=== PATIENT | female | born 1950 | race Caucasian/White ===

== ENCOUNTER → 2018-08-22 10:08 | Outpatient (CLI) | payer OTHER, SELFPAY ==
--- NOTE | 2018-08-22 | DI.MG.S_ITS ---
BILATERAL DIGITAL SCREENING MAMMOGRAM 3D/2D WITH CAD: 08/22/2018 CLINICAL: Routine screening. Comparison is made to exams dated: 09/26/2016 mammogram, 08/20/2015 mammogram, 05/29/2014 mammogram, and 05/06/2013 mammogram - [facility]. The tissue of both breasts is heterogeneously dense. This may lower the sensitivity of mammography. Current study was also evaluated with a Computer Aided Detection (CAD) system. No significant masses, calcifications, or other findings are seen in either breast. There has been no significant interval change. IMPRESSION: NEGATIVE There is no mammographic evidence of malignancy. A 1 year screening mammogram is recommended. This exam was interpreted at Station ID: [id number]. NOTE: For mammograms, a report in lay terms will be sent to the patient. Approximately 15% of breast malignancies will not be visualized mammographically. In the management of a palpable breast mass, a negative mammogram must not discourage biopsy of a clinically suspicious lesion. Electronically Signed By: Pb lim/tyrone:08/23/2018 11:44:03 letter sent: Normal Exam ACR BI-RADS Category 1: Negative [id number]
== END ==
PROVIDERS: PCP Nurse Practitioner Family; Visit Provider Nurse Practitioner Family
DX: Z12.31 Encounter for screening mammogram for malignant neoplasm of breast (principal)
CPT/HCPCS: 77063; 77067

== ENCOUNTER → 2019-02-25 14:14 | Outpatient (CLI) | payer OTHER, SELFPAY | PROVIDERS: PCP Nurse Practitioner Family; Visit Provider Nurse Practitioner Family | DX: M85.851 Other specified disorders of bone density and structure, right thigh (principal); Z78.0 Asymptomatic menopausal state; E07.9 Disorder of thyroid, unspecified; Z90.722 Acquired absence of ovaries, bilateral; Z82.62 Family history of osteoporosis | CPT/HCPCS: 77080 ==

== ENCOUNTER → 2020-04-23 08:35 | Outpatient (CLI) | payer MEDICARE, OTHER, SELFPAY ==
--- NOTE | 2020-04-23 08:37 | DI.MRI.S_ITS ---
PROCEDURE: MR LUMBAR SPINE WO CON INDICATIONS: L4/5 slip TECHNIQUE: Noncontrast sagittal T1 spin echo and T2 fast echo, sagittal STIR, axial T1 and T2 fast spin echo through the lumbar spine. In cases with scoliosis, additional coronal T2 fast spin echo may be performed. COMPARISON: [facility], CR, XR LUMBAR SPINE MIN 4V, 04/23/2020, 9:10. [facility], CT, CT ABD PELVIS W&WO CON IVP, 01/19/2016, 11:27. FINDINGS: Image quality: Diagnostic, with note made of motion artifact. Alignment and Curvature: There is mild grade 1 L3-L4 anterolisthesis, without associated pars defects seen. Minimal retrolisthesis is seen at L4-L5. Bone Marrow: Marrow is of normal overall signal. No acute vertebral body compression fractures. Spinal Cord: Conus medullaris terminates at the L1 level. Visualized cord demonstrates normal signal and size. Paraspinous Soft Tissues: No paravertebral masses. T12-L1: Normal appearance. L1-L2: Normal appearance. L2-L3: The disc height is well-preserved. Loss of disc signal is seen at this level. Moderate to prominent disc bulge is seen, with a central disc extrusion, as on series 5, image 15 and on series 4, image 8. Moderate facet joint hypertrophy is seen. Associated hypertrophy of the ligamentum flavum can be seen. There is [id number] left-sided and minimal right-sided neural foraminal narrowing seen. Severe central canal narrowing is seen at this level. L3-L4: The disc height is well-preserved. Loss of disc signal is seen at this level. Moderate to prominent disc bulge is seen, with a central disc extrusion, with superior migration of the disc material, as on series 2, image 7 and on series 5, image 19. At least moderate facet hypertrophy is seen at this level. Moderate bilateral neural foraminal narrowing is seen. Severe central canal narrowing is seen at this level, which is best seen on series 5, image 20. L4-L5: The disc height is well-preserved. Loss of disc signal is seen at this level. Moderate disc bulge is seen, with a central disc protrusion. Moderate facet joint hypertrophy is seen. There is moderate to severe bilateral neural foraminal narrowing seen. There is a degree of compression seen upon the exiting nerve roots. At least moderate central canal narrowing is seen, as on series 5, image 25. L5-S1: The disc height is well-preserved. Loss of disc signal is seen at this level. Moderate disc bulge is seen, with a central disc protrusion. Mild to moderate facet hypertrophy can be seen at this level. Moderate to severe bilateral neural foraminal narrowing can be seen. There is a degree of compression seen upon the exiting nerve roots. Moderate central canal narrowing is seen. IMPRESSION: Multiple levels of prominent lumbar spine degenerative change are seen, including central disc extrusions at L2-L3 and L3-L4. Severe central canal narrowing is seen at L2-L3 and L3-L4. Moderate to severe bilateral neural foraminal narrowing can be seen, with associated exiting nerve root compression at L4-L5 and L5-S1. Dictated by: Isai Healy M.D. on 04/23/2020 at 9:37 Approved by: Isai Healy M.D. on 04/23/2020 at 9:43
--- NOTE | 2020-04-23 08:37 | DI.RAD.S_ITS ---
PROCEDURE: XR LUMBAR SPINE MIN 4V INDICATIONS: spondylosis TECHNIQUE: 5 views of the lumbar spine were acquired, including bilateral oblique views. COMPARISON: [facility], MR, MR LUMBAR SPINE WO CON, 04/23/2020, 8:53. Outside Facility, RG, XR LUMBOSACRAL SPINE 2-3 VIEWS, 03/10/2020, 9:58. FINDINGS: Bones: 5 nonrib-bearing vertebrae are present. There is normal bony alignment. No vertebral body compression fractures. No suspicious bony lesions. There is mild degenerative disc height reduction from L3 inferiorly, and facet osteoarthritis is mild to moderate from L3 inferiorly also, most pronounced at L5-S1. There is slight grade 1 anterolisthesis of L3 on L4. Soft tissues: Overlying bowel gas pattern is normal. No suspicious soft tissue calcifications. Oblique images: No pars defects. IMPRESSION: Mild degenerative changes as discussed, please also refer to lumbosacral spine MRI same day which shows a greater degree of degenerative changes and disc disease. Slight anterolisthesis of L3 on L4. No compression fracture found. Dictated by: Eddy Espinoza M.D. on 04/23/2020 at 12:55 Approved by: Eddy Espinoza M.D. on 04/23/2020 at 12:57
== END ==
PROVIDERS: PCP Nurse Practitioner Family; Referring Provider Nurse Practitioner Family; Visit Provider Physical Medicine & Rehabilitation
DX: M48.062 Spinal stenosis, lumbar region with neurogenic claudication (principal); M48.07 Spinal stenosis, lumbosacral region; M51.16 Intervertebral disc disorders with radiculopathy, lumbar region; M43.16 Spondylolisthesis, lumbar region; M47.26 Other spondylosis with radiculopathy, lumbar region; M47.27 Other spondylosis with radiculopathy, lumbosacral region
CPT/HCPCS: 72110; 72148

== ENCOUNTER 2020-06-06 20:35 | Emergency (ER) | payer MEDICARE, OTHER, SELFPAY ==
[2020-06-06 20:45] VITALS: BP 197/88; PULSE 72; RESP 16; O2SAT 100; BMI 21.6
[2020-06-06 21:11] VITALS: BP 148/70
[2020-06-06 22:10] LABS: Add Manual Diff / Slide Review NO; Basophils Absolute Auto 0 /uL (0-100); Basophils Percent Auto 0.7 % (0-2); Eosinophils Absolute Auto 0 /uL (0-450); Eosinophils Percent Auto 0.5 % (2-4); Hemoglobin 11.8 g/dL (12.0-16.0); Lymphocytes Absolute Auto 1600 /uL (1100-4500); Lymphocytes Percent Auto 26.8 % (25-40); Mean Corpuscular HGB Conc 33.8 % (30-36); Mean Corpuscular Hemoglobin 29.7 PG (26-34); Mean Corpuscular Volume 87.9 fL (80-100); Monocytes Absolute Auto 600 /uL (0-900); Monocytes Percent Auto 9.6 % (3-14); Neutrophils Absolute Auto 3800 /uL (1500-7000); Neutrophils Percent Auto 62.4 % (50-75); Platelet Count 229 X10^3/uL (150-400); Red Blood Cell Count 3.98 X10^6/uL (4.0-5.2)
[2020-06-06 22:15] LABS: INR 1.1 (0.9-1.3); Prothrombin Time 12.1 SECONDS (10.1-12.7)
[2020-06-06 22:20] LABS: Alanine Aminotransferase 19 IU/L (<35); Albumin 3.9 g/dL (3.5-5.0); Albumin Globulin Ratio 1.6 (1.0-2.8); Alkaline Phosphatase 55 U/L (38-126); Aspartate Aminotransferase 27 IU/L (14-36); BUN Creatinine Ratio 32.4 (6-22); Bilirubin Total 0.2 mg/dL (0.2-1.3); Blood Urea Nitrogen 23 mg/dL (7-17); Calcium 9.2 mg/dL (8.4-10.2); Carbon Dioxide 32 mmol/L (22-32); Chloride 103 mmol/L (98-107); Estimated Glomerular Filt Rate > 60.0 mL/min (>60); Globulin 2.5 g/dL (1.7-4.1); Glucose 102 mg/dL (80-110); HEMOLYSIS < 15 (0-50); Potassium 3.5 mmol/L (3.4-5.1); Sodium 139 mmol/L (137-145); Total Protein 6.4 g/dL (6.3-8.2)
--- NOTE | 2020-06-06 22:36 | ED.GIBLEED ---
HPI - GI Bleed General Chief complaint: GI Bleed Stated complaint: On prednisone, has black stools Time Seen by Provider: 06/06/20 20:39 Source: patient and family Mode of arrival: Ambulatory Limitations: no limitations History of Present Illness HPI Narrative: 69F nonsmoker, nondrinker presents with her at the request of her doctor for evaluation of black stools today at 1400. She notice a dark stool in the absence of other symptoms and called her doctor and was instructed to come to the ED immediately. She denies any history of alcohol, frequent NSAID use, blood thinners or history of GI bleed. She has not been dizzy, weak or lightheaded. She denies any chest pain or shortness of breath. She denies any abdominal pain. She recently started a Medrol Dosepak which has given her difficulty with sleeping and nearly immediately made her feel nauseated. She started taking Pepto-Bismol which seems to help. She has had no fever or chills. She denies recent antibiotics, travel, or exposure to bad food MD complaint: other Onset (ago): hour(s) Relieving factors: none Exacerbating factors: none Associated symptoms: denies other symptoms Treatments Prior to Arrival: none Related Data Home Medications Medication Instructions Recorded Confirmed CHOLECALCIFEROL (VITAMIN D) 2,000 iu PO Q DAY #0 08/08/10 05/21/20 B.ANI/L.ACI/L.CRISTINA/L.PLAN/L.GONZALEZ 1 cap PO Q DAY #0 09/11/11 05/21/20 (Probiotic Formula Capsule) MULTIVITAMIN (One Daily 1 tab PO Q DAY #0 09/11/11 05/21/20 Multivitamin) coenzyme Q10 75 mg capsule 150 mg PO DAILY 04/19/20 05/21/20 turmeric 400 mg capsule mg PO 04/19/20 05/21/20 Previous Rx's Medication Instructions Recorded epinephrine 0.3 mg IM PRN #1 kit 10/08/15 albuterol sulfate [Proventil HFA] 0.09 mg IH Q4HP #1 inh 08/23/16 hydrochlorothiazide 25 mg PO QDAY #90 tab 08/23/16 levothyroxine [Synthroid] 25 mcg PO Q DAY #90 tab 08/23/16 losartan 50 mg PO BID #180 tab 06/07/17 gabapentin 300 mg capsule 300 mg PO .COMPLEX #90 cap 05/13/20 methylprednisolone 4 mg tablets in See Rx Instructions PO PER PKG DIR 05/21/20 a dose pack #21 ea Allergies Allergy/AdvReac Type Severity Reaction Status Date / Time venom-wasp [WASP VENOM] Allergy Severe HIVES Unverified 05/21/20 10:51 SHITAKE MUSHROOM Allergy Mild HIVES Uncoded 05/21/20 10:51 Review of Systems Constitutional Constitutional: Denies chills, Denies fatigue, Denies fever(s), Denies frequent falls, Denies lethargy and Denies weakness Eyes Eyes: Denies change in vision, Denies eye discharge, Denies irritation and Denies loss of vision ENT Ears, Nose, Mouth, and Throat: Denies change in voice, Denies dizziness, Denies neck pain, Denies sore throat and Denies throat swelling Cardiovascular Cardiovascular: Denies chest pain, Denies irregular heart rhythm, Denies lightheadedness, Denies palpitations, Denies dyspnea, Denies dyspnea on exertion and Denies orthopnea Respiratory Respiratory: Denies cough, Denies dyspnea, Denies dyspnea on exertion and Denies wheezing Gastrointestinal Gastrointestinal: Denies abdominal pain, Denies change in bowel habits, Denies diarrhea, Denies nausea and Denies vomiting Comments: dark stool x1 Musculoskeletal Musculoskeletal: Denies neck pain and Denies numbness Integumentary/Breasts Skin/Breast: Denies pruritus, Denies erythema, Denies rash and Denies wounds Neurologic Neurologic: Denies behavioral changes, Denies confusion, Denies dizziness, Denies frequent falls, Denies loss of vision, Denies numbness and Denies weakness Psychiatric Psychiatric: Denies anxiety, Denies behavioral changes, Denies confusion, Denies depression, Denies homicidal ideation and Denies suicidal ideation Endocrine Endocrine: Denies fatigue, Denies flushing and Denies palpitations Hematologic/Lymphatic Hematologic/Lymphatic: Denies easy bruising Allergic/Immunologic Allergic/Immunologic: Denies urticaria, Denies throat swelling and Denies wheezing Patient History Medical History Herniated nucleus pulposus, L2-3 right Herniated nucleus pulposus, L3-4 right Lumbar radiculopathy Neurogenic claudication due to lumbar spinal stenosis Spondylolisthesis at L4-L5 level Surgical History H/O lithotripsy H/O rotator cuff surgery Family History Father Emphysema lung Mother Hypertension Social History Smoking Status: Never smoker Smoking Status: Never smoker alcohol intake frequency: 0-2 drinks per day Substance Use Type: does not use Exam Narrative Exam Narrative: GENERAL: [69] year old patient appears stated age. Well-nourished, well-developed patient, in mild distress. HEAD: Atraumatic. Normocephalic. EYES: Pupils equal round and reactive. Extraocular motions intact. No scleral icterus. No injection or drainage. ENT: Nose without bleeding, purulent drainage. Throat without erythema, tonsillar hypertrophy or exudate. Airway patent. NECK: Trachea midline. Non tender CARDIOVASCULAR: Regular rate and rhythm without murmurs, gallops, or rubs. RESPIRATORY: Clear to auscultation. Breath sounds equal bilaterally. No wheezes, rales, or rhonchi. GASTROINTESTINAL: Abdomen soft, non-tender, nondistended. EXTREMITIES: No edema or joint tenderness. BACK: Nontender without deformity or crepitance. No flank tenderness. NEURO: AOx3. SKIN: No rash or erythema of visible areas Initial Vital Signs Initial Vital Signs: Vital Signs Pulse Rate 72 06/06/20 20:45 Respiratory Rate 16 06/06/20 20:45 Blood Pressure 197/88 H 06/06/20 20:45 Pulse Oximetry 100 06/06/20 20:45 Course Course Course Narrative: stool with hemoccult by nursing is negative Orders Ordered: ED Orders 06/06/20 21:53 Complete Blood Count AUTO DIFF Stat Comprehensive Metabolic Panel Stat Prothrombin Time INR Stat Vital Signs Vital signs: Vital Signs - 8 hr 06/06/20 20:45 06/06/20 21:11 Pulse Rate 72 Respiratory Rate 16 Blood Pressure 197/88 H 148/70 H Pulse Oximetry 100 MDM - GI Bleed Lab Data Result diagrams: 06/06/20 21:53 06/06/20 21:53 Labs: Lab Results 06/06/20 06/06/20 06/06/20 Range/Units 21:53 21:53 21:53 WBC 6.0 (4.5-11.0) X10^3/uL RBC 3.98 L (4.0-5.2) X10^6/uL Hgb 11.8 L (12.0-16.0) g/dL Hct 35.0 L (36-46) % MCV 87.9 (80-100) fL MCH 29.7 (26-34) PG MCHC 33.8 (30-36) % RDW 14.0 (11.6-14.8) % Plt Count 229 (150-400) X10^3/uL Neut % (Auto) 62.4 (50-75) % Lymph % (Auto) 26.8 (25-40) % [place] % (Auto) 9.6 (3-14) % Eos % (Auto) 0.5 L (2-4) % Baso % (Auto) 0.7 (0-2) % Neut # (Auto) 3800 (0083-8255) /uL Lymph # (Auto) 1600 (7475-8707) /uL [place] # (Auto) 600 (0-900) /uL Eos # (Auto) 0 (0-450) /uL Baso # (Auto) 0 (0-100) /uL PT 12.1 (10.1-12.7) SECONDS INR 1.1 (0.9-1.3) Sodium 139 (137-145) mmol/L Potassium 3.5 (3.4-5.1) mmol/L Chloride 103 (98-107) mmol/L Carbon Dioxide 32 (22-32) mmol/L BUN 23 H (7-17) mg/dL Creatinine 0.71 (0.52-1.04) mg/dL Estimated GFR > 60.0 (>60) mL/min BUN/Creatinine Ratio 32.4 H (6-22) Glucose 102 (80-110) mg/dL Calcium 9.2 (8.4-10.2) mg/dL Total Bilirubin 0.2 (0.2-1.3) mg/dL AST 27 (14-36) IU/L ALT 19 (<35) IU/L Alkaline Phosphatase 55 (38-126) U/L Total Protein 6.4 (6.3-8.2) g/dL Albumin 3.9 (3.5-5.0) g/dL Globulin 2.5 (1.7-4.1) g/dL Albumin/Globulin Ratio 1.6 (1.0-2.8) Point of Care Testing Stool Occult Blood Negative MDM Narrative Medical decision making narrative: Patient reports 1 dark stool after taking Pepto-Bismol. She denies any ongoing symptoms, has no history of GI bleed. She is not dizzy nor weak or lightheaded and denies pain. She does not have an alcohol history. Heme negative on exam. There is no evidence of bleeding, perhaps a very small bleed resolved, more likely the dark stool as a consequence of Pepto-Bismol. She has been given return precautions and encouraged to follow-up closely with her PCP. She has had questions answered to her apparent satisfaction Discharge Plan Departure Patient Disposition: Home Clinical Impression: Feared complaint without diagnosis Instructions: Gastrointestinal Bleeding Activity Restrictions/Additional Instructions: *You have been diagnosed with [dark stool, no evidence of bleeding. Your labs, exam and story are very reassuring and the dark stool could certainly have been due to the Pepto-Bismol you had been taking] *What to do: * continue to take medications as directed *Follow up with your primary care provider in 2-3 days, call for an appointment. Let them know you were seen in the Emergency Department and that we ask that you be seen in follow up *Return to ER if you should have any new, worsening or concerning symptoms, such as [pain, shortness of breath, lightheadedness, passage of dark and tarry or bright red blood in your stool or other bothersome symptoms] Prescriptions: No Action CHOLECALCIFEROL (VITAMIN D) 2,000 iu PO Q DAY Qty: 0 RF: 0 MULTIVITAMIN (One Daily Multivitamin) 1 tab PO Q DAY Qty: 0 RF: 0 B.ANI/L.ACI/L.CRISTINA/L.PLAN/L.GONZALEZ (Probiotic Formula Capsule) 1 cap PO Q DAY Qty: 0 RF: 0 epinephrine 0.3 MG/0.3 ML auto-injector 0.3 mg IM PRN Qty: 1 RF: 1 losartan 50 MG tablet 50 mg PO BID Qty: 180 RF: 1 levothyroxine [Synthroid] 25 MCG tablet 25 mcg PO Q DAY Qty: 90 RF: 3 hydrochlorothiazide 25 MG tablet 25 mg PO QDAY Qty: 90 RF: 1 albuterol sulfate [Proventil HFA] 90 MCG/PUFF HFA aerosol inhaler 0.09 mg IH Q4HP Qty: 1 RF: 1 gabapentin 300 mg capsule 300 mg PO .COMPLEX Qty: 90 RF: 2 methylprednisolone [Medrol (Demarcus)] 4 mg tablets,dose pack See Rx Instructions PO PER PKG DIR Qty: 21 RF: 0 Ultra CoQ10 75 mg capsule 150 mg PO DAILY RF: 0 turmeric 400 mg capsule PO RF: 0 Referrals: Taylor Quiñones ARNP [Primary Care Provider] -
== END 2020-06-06 22:48 | disposition home or self-care (01) ==
PROVIDERS: Emergency Provider Emergency Medicine; PCP Nurse Practitioner Family
DX: K92.2 Gastrointestinal hemorrhage, unspecified (principal)
CPT/HCPCS: 36415; 80053; 82272; 85025; 85610; 99283

== ENCOUNTER 2020-06-10 14:00 | Outpatient (CLI) | payer MEDICARE, OTHER, SELFPAY ==
[2020-06-10] VITALS (9 sets, daily range): BP systolic 94–182; BP diastolic 51–86; PULSE 16–67; RESP 10–100; TEMP 36.8; O2SAT 99–100
--- NOTE | 2020-06-10 14:05 | DI.RAD.S_ITS ---
PROCEDURE: PAIN L/S TRANSFORAMINAL INJECT INDICATIONS: SPONDYLOSIS COMPARISON: None. FINDINGS: Fluoroscopic spot filming was performed to verify placement of spinal needles at the L2-L3 and L3-L4 level(s), as labeled on the films. Appropriate location(s) of the needle tip(s) was confirmed by injection of iodinated contrast. Dictated by: Garrett Carvajal M.D. on 06/10/2020 at 15:39 Approved by: Garrett Carvajal M.D. on 06/10/2020 at 15:40
[2020-06-10] MEDS: MIDAZOLAM 5 MG/5 ML VIAL IV (14:53)
[2020-06-10] MEDS: DEXAMETHASONE 10 MG/ML VIAL 20 MG INJ (14:57)
[2020-06-10] MEDS: BUPIVACAINE 0.25% (PF) VIAL 2 ML INJ (14:57)
[2020-06-10] MEDS: IOPAMIDOL 15 ML VIAL 3 ML INJ (14:57)
[2020-06-10] MEDS: BETAMETHASONE 30 MG/5 ML MDV 6 MG INJ (14:57)
[2020-06-10] MEDS: LIDOCAINE 1% 20 ML 10 ML INJ (14:59)
--- NOTE | 2020-06-10 15:06 | PM.PROC.IR.1 ---
Date/Time/Diagnoses Date of procedure: 06/10/20 Time of procedure: 15:06 Pre-procedure diagnosis: 1. FORAMINAL STENOSIS WITH LE SYMPTOMS Post-procedure diagnosis: same Procedure Notes Procedure: 1. FLUOROSCOPICALLY GUIDED CONTRAST CONTROLLED TRANSFORAMINAL EPIDURAL STEROID INJECTION - RIGHT L3/4 TFESI Indications: Tahira is referred by TRUPTI Quiñones for treatment of Foraminal Stenosis with right LE Symptoms Physician: Arvind Fox Total Fluoroscopy time (seconds): 9 Total sedation minutes: 11 Complications: none Procedure in detail & Post-procedure care: FINDINGS Foraminal Nerve Root Compression secondary to disc disease and facet hypertrophy DESCRIPTION OF PROCEDURE Following review of allergy and review of potential side effects and complications, including, but not necessarily limited to, infection, allergic reaction, local tissue breakdown, stroke, temporary or permanent nerve injury, paralysis, and possible , the patient indicated that the patient understood and agreed to proceed. An informed consent document was signed by the patient, witnessed by a nurse, and placed in the patient's chart. Additionally, other treatment options including medications, modalities, and physical therapy were reviewed with the patient. After review of previous anaesthesic history and IV conscious sedation the patient was deemed safe to proceed with today?s procedure with IV conscious sedation as ASA class II designation. Safety time-out was performed to confirm patient ID, procedure to be performed and site of procedure. IV sedation was accomplished with a combination of 2mg of Versed was administered by the RN after DO order, titrated to patient comfort during the course of the procedure while the patient remained responsive to all verbal commands In the prone position following sterile prep and drape of the lumbar region, the right L3/4 posterior neuroforamen was identified fluoroscopically. The skin was anesthetized via a 25-gauge 1.5-inch needle with 1% lidocaine solution. At this point, a 25-gauge 3.5-inch spinal needle was atraumatically introduced and advanced under fluoroscopic guidance through the posterior right L3/4 neuroforamen to approximately the anterior aspect of the canal. Depth was confirmed on lateral view. Following negative aspiration, injection of approximately 1.5 cc of Isovue 200 under live fluoroscopy in the AP view confirmed excellent flow along the nerve root, into the epidural space without vascular or intrathecal uptake observed Radiological data, including multiple fluoroscopic views of the lumbosacral spine, reveal a spinal needle at the right L3/4 posterior neuroforamen. Subsequent views show flow of contrast material flowing superiorly and inferiorly along the nerve root confirming epidural flow. Subsequently, a test dose of 1.5 cc of 1% lidocaine solution was administered and patient was observed for two minutes for signs or symptoms of complications, including abdominal pain, shortness of breath, bilateral upper or lower extremity weakness, nausea and vomiting, prior to steroid injection. At this point, a total of 3cc or 20mg of dexamethasone and 6mg of betamethasone was injected without incident. The patient tolerated the procedure well without signs or symptoms of complications prior to transfer to the recovery area continued monitoring without incident. The patient was then transferred to the recovery area where they were observed for an appropriate time after the injection. The patient reported a VAS score of 7 prior to the procedure and a post-procedure VAS of 0. POST OP INSTRUCTIONS The patient was provided a Pain Log to continue to record their response to the target-specific procedure prior to follow-up visit with their referring physician. Additionally, specific post-injection care instructions and a contact number to our office were provided if concerns arise regarding possible complications associated with the procedure are suspected.
--- NOTE | 2020-06-10 15:07 | PM.PROC.IR.1 ---
Date/Time/Diagnoses Date of procedure: 06/10/20 Time of procedure: 15:07 Pre-procedure diagnosis: 1. FORAMINAL STENOSIS WITH LE SYMPTOMS Post-procedure diagnosis: same Procedure Notes Procedure: 1. FLUOROSCOPICALLY GUIDED CONTRAST CONTROLLED TRANSFORAMINAL EPIDURAL STEROID INJECTION - RIGHT L2/3 TFESI Indications: Tahira is referred by TRUPTI Quiñones for treatment of Foraminal Stenosis with right LE Symptoms Physician: Arvind Fox Total Fluoroscopy time (seconds): 9 Total sedation minutes: 11 Complications: none Procedure in detail & Post-procedure care: FINDINGS Foraminal Nerve Root Compression secondary to disc disease and facet hypertrophy DESCRIPTION OF PROCEDURE Following review of allergy and review of potential side effects and complications, including, but not necessarily limited to, infection, allergic reaction, local tissue breakdown, stroke, temporary or permanent nerve injury, paralysis, and possible , the patient indicated that the patient understood and agreed to proceed. An informed consent document was signed by the patient, witnessed by a nurse, and placed in the patient's chart. Additionally, other treatment options including medications, modalities, and physical therapy were reviewed with the patient. After review of previous anaesthesic history and IV conscious sedation the patient was deemed safe to proceed with today?s procedure with IV conscious sedation as ASA class II designation. Safety time-out was performed to confirm patient ID, procedure to be performed and site of procedure. IV sedation was accomplished with a combination of 2mg of Versed was administered by the RN after DO order, titrated to patient comfort during the course of the procedure while the patient remained responsive to all verbal commands In the prone position following sterile prep and drape of the lumbar region, the right L2/3 posterior neuroforamen was identified fluoroscopically. The skin was anesthetized via a 25-gauge 1.5-inch needle with 1% lidocaine solution. At this point, a 25-gauge 3.5-inch spinal needle was atraumatically introduced and advanced under fluoroscopic guidance through the posterior right L2/3 neuroforamen to approximately the anterior aspect of the canal. Depth was confirmed on lateral view. Following negative aspiration, injection of approximately 1.5 cc of Isovue 200 under live fluoroscopy in the AP view confirmed excellent flow along the nerve root, into the epidural space without vascular or intrathecal uptake observed Radiological data, including multiple fluoroscopic views of the lumbosacral spine, reveal a spinal needle at the right L2/3 posterior neuroforamen. Subsequent views show flow of contrast material flowing superiorly and inferiorly along the nerve root confirming epidural flow. Subsequently, a test dose of 1.5 cc of 1% lidocaine solution was administered and patient was observed for two minutes for signs or symptoms of complications, including abdominal pain, shortness of breath, bilateral upper or lower extremity weakness, nausea and vomiting, prior to steroid injection. At this point, a total of 3cc or 20mg of dexamethasone and 6mg of betamethasone was injected without incident. The patient tolerated the procedure well without signs or symptoms of complications prior to transfer to the recovery area continued monitoring without incident. The patient was then transferred to the recovery area where they were observed for an appropriate time after the injection. The patient reported a VAS score of 7 prior to the procedure and a post-procedure VAS of 0. POST OP INSTRUCTIONS The patient was provided a Pain Log to continue to record their response to the target-specific procedure prior to follow-up visit with their referring physician. Additionally, specific post-injection care instructions and a contact number to our office were provided if concerns arise regarding possible complications associated with the procedure are suspected.
--- NOTE | 2020-06-10 17:13 | PC.NURSE ---
Patient was assisted with sitting up on the table in procedure room. Reports that she is unable to move or feel both her legs from the waist down. Needs assistance with sitting up on the side of the table. Dr Fox transferred patient to the w/c and was total assist. Patient was A&O able to make needs known. While waiting for Dr Fox to help transfer patient this RN was talking with patient all the sudden states I feel like I am going to pass out, 3 RN assisted transferring patient to chair and was reclined. MD arrived and was able to monitor patient
== END 2020-06-10 16:25 | disposition home or self-care (01) ==
PROVIDERS: PCP Nurse Practitioner Family; Referring Provider Nurse Practitioner Family; Visit Provider Physical Medicine & Rehabilitation
DX: M48.061 Spinal stenosis, lumbar region without neurogenic claudication (principal); M51.16 Intervertebral disc disorders with radiculopathy, lumbar region
CPT/HCPCS: 64483; 64484; 64494; 99152; J0702; J1100; J2250; J3010

== ENCOUNTER → 2020-08-16 08:57 | Outpatient (CLI) | payer MEDICARE, OTHER, SELFPAY ==
[2020-08-16 12:03] LABS: COVID19 -Nasal RAPID Negative (Negative)
== END ==
PROVIDERS: PCP Nurse Practitioner Family; Visit Provider Student in an Organized Health Care Education/Training Program
DX: Z20.822 Contact with and (suspected) exposure to COVID-19 (principal); Z01.812 Encounter for preprocedural laboratory examination
CPT/HCPCS: 87635; C9803

== ENCOUNTER 2020-08-17 09:57 | Outpatient (CLI) | payer MEDICARE, OTHER, SELFPAY ==
[2020-08-17] VITALS (9 sets, daily range): BP systolic 147–183; BP diastolic 69–97; PULSE 69–78; RESP 14–25; TEMP 36.8; O2SAT 95–100
--- NOTE | 2020-08-17 09:58 | DI.RAD.S_ITS ---
PROCEDURE: PAIN L INTERLAMINAR/CAUDAL INJ INDICATIONS: SPONDYLOSIS COMPARISON: [facility], XA, PAIN L/S TRANSFORAMINAL INJECT, 06/10/2020, 14:57. Fluoroscopic spot filming was performed to verify placement of a spinal needle at the L3-L4 level, as labeled on the films. Appropriate location of the needle tip was confirmed by injection of iodinated contrast. IMPRESSION: Intraprocedural examination within normal limits. Dictated by: Isai Healy M.D. on 08/17/2020 at 11:03 Approved by: Isai Healy M.D. on 08/17/2020 at 11:03
[2020-08-17] MEDS: MIDAZOLAM 5 MG/5 ML VIAL IV (10:27)
[2020-08-17] MEDS: BETAMETHASONE 30 MG/5 ML MDV 6 MG INJ (10:34)
[2020-08-17] MEDS: IOPAMIDOL 15 ML VIAL 3 ML INJ (10:34)
[2020-08-17] MEDS: BUPIVACAINE 0.25% (PF) VIAL 2 ML INJ (10:34)
[2020-08-17] MEDS: DEXAMETHASONE 10 MG/ML VIAL 20 MG INJ (10:34)
--- NOTE | 2020-08-17 10:41 | P.PCN_ITS ---
Date/Time/Diagnoses Date of procedure: 08/17/20 Time of procedure: 10:41 Pre-procedure diagnosis: 1. HNP WITH RADICULAR FEATURES, 2. MULTILEVEL CENTRAL STENOSIS, Post-procedure diagnosis: same Procedure Notes Procedure: 1. FLUOROSCOPICALLY GUIDED CONTRAST CONTROLLED INTERLAMINAR EPIDURAL STEROID INJECTION - L3/4 Indications: Tahira is referred by TRUPTI Quiñones for treatment of Bilateral Foraminal Stenosis L>R LE symptoms. Physician: Arvind Fox Total Fluoroscopy time (seconds): 6 Total sedation minutes: 11 Complications: none Procedure in detail & Post-procedure care: FINDINGS Multilevel Central Spinal Stenosis with Nerve Root Compression DESCRIPTION OF PROCEDURE Fluoroscopically guided, contrast-controlled L3/4 translaminar epidural steroid injection. Following review of allergy and review of potential side effects and complications, including, but not necessarily limited to, infection, allergic reaction, local tissue breakdown, temporary as well as permanent nerve injury, paralysis, stroke and possible , the patient indicated that the patient understood and agreed to proceed. An informed consent document was signed by the patient, witnessed by a nurse, and placed in the patient's chart. Additionally, other treatment options including modalities, medications, and physical therapy were reviewed with the patient. After review of previous anaesthesic history and IV conscious sedation the patient was deemed safe to proceed with today?s procedure with IV conscious sedation as ASA class II designation. Safety time-out was performed to confirm p atient ID, procedure to be performed and site of procedure. IV sedation was accomplished with a combination of 1mg of Versed was administered by the RN after DO order, titrated to patient comfort during the course of the procedure while the patient remained responsive to all verbal commands. In the prone position, following sterile prep and drape of the lumbar region, the L3/4 translaminar space was identified fluoroscopically. The skin was anesthetized via a 25-gauge, 1.5-inch needle with 1% lidocaine solution. At this point, a 22-gauge short bevel spinal needle was atraumatically introduced and advanced under fluoroscopic guidance into the region of the L3/4 translaminar space. Depth was confirmed on lateral view. Radiological data, including multiple fluoroscopic views of the lumbar spine, reveal a spinal needle at the L3/4 translaminar space. Lateral views then show placement of the needle in the epidural space. Subsequent views show contrast material flowing superiorly and inferiorly in the epidural space. No vascular or intrathecal uptake is observed. At this point, using loss of resistance technique with saline and air, the epidural space was entered. This was confirmed following negative aspiration with injection of approximately 1.5 cc of Isovue 200, showing excellent epidural flow without vascular or intrathecal uptake. At this point, 1cc of 1% lidocaine solution combined with 3cc or 20mg of dexamethasone and 6mg of betamethasone was injected without incident. The patient tolerated the procedure well without signs or symptoms of complications prior to transfer to the recovery area continued monitoring without incident. The patient was then transferred to the recovery area where they were observed for an appropriate period of time after the injection. The patient reported a VAS score of 6 prior to the procedure and a post- procedure VAS of 0. POST OP INSTRUCTIONS The patient was provided a Pain Log to continue to record their response to the target-specific procedure prior to follow-up visit with their referring physician. Additionally, specific post-injection care instructions and a contact number to our office were provided if concerns arise regarding possible complications associated with the procedure are suspected.
== END 2020-08-17 11:04 | disposition home or self-care (01) ==
PROVIDERS: PCP Nurse Practitioner Family; Referring Provider Physical Medicine & Rehabilitation; Visit Provider Physical Medicine & Rehabilitation
DX: M54.5 Low back pain (principal); G89.29 Other chronic pain; M47.896 Other spondylosis, lumbar region; M48.061 Spinal stenosis, lumbar region without neurogenic claudication
CPT/HCPCS: 62323; 99152; J0702; J1100; J2250; J3010

== ENCOUNTER → 2020-11-25 14:56 | Outpatient (CLI) | payer MEDICARE, OTHER, SELFPAY ==
--- NOTE | 2020-11-25 | DI.MRI.S_ITS ---
PROCEDURE: MR FEMUR LT WO CON INDICATIONS: Pain in left knee TECHNIQUE: Noncontrast coronal and sagittal T1 spin echo and STIR; axial T1 spin echo and T2 fast spin echo with fat saturation through the left femur. COMPARISON: None. FINDINGS: Image quality: Motion degraded examination. Bones: Focal intramedullary signal change with T2 hyperintense appearance seen in the proximal femoral diaphysis measuring approximately 3.1 x 0.9 cm on coronal pulse sequences. There is similar appearing signal change involving the subtrochanteric left femur measuring 1.2 cm on image 16/4. No definite overlying periosteal reaction. No cortical breakthrough is seen. No soft tissue component. Soft tissues: Mild age-indeterminate left hamstring origin tendinopathy/partial tear. Muscle signal intensity otherwise unremarkable. IMPRESSION: Intramedullary signal changes involving the subtrochanteric left femur and proximal left femoral diaphysis, which is worrisome for metastatic disease/myeloma among other possibilities. This would be atypical (asymmetric) for partial marrow reconversion although that remains in the differential. Recommend further evaluation with contrast enhanced study, and potentially oncological consultation. A bone scan could also be considered for further workup. Please correlate to point tenderness. Age-indeterminate left hamstring origin tendinopathy/partial tear. Dictated by: Garrett Carvajal M.D. on 11/26/2020 at 10:24 Approved by: Garrett Carvajal M.D. on 11/26/2020 at 10:40
--- NOTE | 2020-11-25 | DI.MRI.S_ITS ---
PROCEDURE: MR KNEE LT WO CON INDICATIONS: KNEE PAIN TECHNIQUE: Noncontrast sagittal PD fast spin echo and T2 fast spin echo with fat saturation, sagittal 3-D FLASH with fat saturation; coronal T1 spin echo and PD fast spin echo with fat saturation, and axial PD fast spin echo with fat saturation through the knee. COMPARISON: None. FINDINGS: Menisci: Medial meniscus: Medial meniscal tear involving the body with slight partial extrusion. There is amorphous intrasubstance signal change extending to the undersurface. Lateral meniscus: Intact. Cruciate ligaments: Anterior cruciate ligament: Intact. Posterior cruciate ligament: Intact. Medial structures: The medial collateral ligament: Intact. Semimembranosus tendon: Intact. Visualized pes anserinus tendons: Intact. Bursal fluid: none. Lateral structures: The lateral collateral ligament intact. Biceps femoris tendon appears intact. Popliteus tendon grossly unremarkable. Iliotibial band appears intact. Anterior structures: Quadriceps tendon: Intact. Medial patellofemoral ligament: Intact. Lateral patellofemoral ligament: Intact. Patellar tendon: Proximal thickening and tendinopathy. Anterior soft tissues: Prepatellar and superficial infrapatellar subcutaneous edema/fluid. Deep infrapatellar region: Normal. Bones and cartilage: Marrow: No focal marrow contusion or discrete low signal fracture line. Medial compartment: Near full-thickness loss of the femoral cartilage. Partial-thickness diffuse loss of the tibial cartilage. Lateral compartment: Diffuse partial-thickness loss and surface fraying as well as intrasubstance signal changes of the femoral and tibial cartilage. Patellofemoral compartment: Full-thickness loss of the cartilage overlying the medial patellar facet and medial femoral trochlea. There is diffuse partial-thickness loss of the remaining femoral trochlear and patellar cartilage. Joint space: Effusion: Small to moderate joint effusion Popliteal fossa: No Stoll's cyst. Loose bodies: None. IMPRESSION: Medial meniscal tear involving the body with slight partial extrusion Small to moderate joint effusion Tricompartmental joint degeneration most pronounced in the medial and patellofemoral compartment. Proximal patellar tendinopathy and thickening. Dictated by: Garrett Carvajal M.D. on 11/26/2020 at 10:57 Approved by: Garrett Carvajal M.D. on 11/26/2020 at 11:14
== END ==
PROVIDERS: PCP Nurse Practitioner Family; Referring Provider Nurse Practitioner Family; Visit Provider Nurse Practitioner Family
DX: M25.562 Pain in left knee (principal); M89.9 Disorder of bone, unspecified
CPT/HCPCS: 73718; 73721

== ENCOUNTER → 2020-12-01 08:57 | Outpatient (CLI) | payer MEDICARE, OTHER, SELFPAY ==
--- NOTE | 2020-12-01 | DI.MRI.S_ITS ---
PROCEDURE: MR FEMUR LT WO/W CON INDICATIONS: Abnormal findings on diagnostic imaging of other specified b TECHNIQUE: Noncontrast coronal T1 spin echo and STIR, sagittal T1 spin echo with fat saturation and STIR, axial T1 spin echo and T2 fast spin echo with fat saturation. After the administration of contrast, axial/sagittal/coronal T1 spin echo with fat saturation through the left femur . COMPARISON: [facility], MR, MR FEMUR LT WO CON, 11/25/2020, 16:36. [facility], MR, MR KNEE LT WO CON, 11/25/2020, 16:08. FINDINGS: Image quality: Excellent. Bones: No acute fracture identified. There is focal marrow signal change present within the proximal diaphysis of the femur measuring approximately 2.5 cm in the cephalocaudal dimension. There is loss of the normal marrow fat signal intensity however intrinsic T1 hyperintensity seen on precontrast fat suppressed T1 weighted pulse sequences. Therefore, no definite enhancement. No overlying periosteal reaction is seen. Soft tissues: There is moderate left hamstring origin tendinopathy and intrasubstance signal changes, technically age indeterminate finding. IMPRESSION: Moderate hamstring origin tendinopathy/partial tear. Technically this is an age indeterminate finding and recommend clinical correlation to determine the acuity. Marrow signal changes involving the proximal femoral diaphysis, which could be related to marrow reconversion however cannot exclude metastatic or malignant possibilities, such as myeloma. Recommend further evaluation with bone scan, and dependent on those results, continued observation versus additional workup. Dictated by: Garrett Carvajal M.D. on 12/01/2020 at 15:05 Approved by: Garrett Carvajal M.D. on 12/01/2020 at 15:15
== END ==
PROVIDERS: PCP Nurse Practitioner Family; Referring Provider Nurse Practitioner Family; Visit Provider Nurse Practitioner Family
DX: S76.312A Strain of muscle, fascia and tendon of the posterior muscle group at thigh level, left thigh, initial encounter (principal); R93.89 Abnormal findings on diagnostic imaging of other specified body structures
CPT/HCPCS: 73720

== ENCOUNTER → 2020-12-03 11:47 | Outpatient (CLI) | payer MEDICARE, OTHER, SELFPAY ==
[2020-12-03 13:23] LABS: Add Manual Diff / Slide Review NO; Basophils Absolute Auto 0 /uL (0-100); Basophils Percent Auto 0.7 % (0-2); Eosinophils Absolute Auto 100 /uL (0-450); Eosinophils Percent Auto 1.6 % (2-4); Hemoglobin 13.1 g/dL (12.0-16.0); Lymphocytes Absolute Auto 1900 /uL (1100-4500); Lymphocytes Percent Auto 30.7 % (25-40); Mean Corpuscular HGB Conc 33.7 % (30-36); Mean Corpuscular Hemoglobin 30.6 PG (26-34); Mean Corpuscular Volume 90.8 fL (80-100); Monocytes Absolute Auto 400 /uL (0-900); Monocytes Percent Auto 6.8 % (3-14); Neutrophils Absolute Auto 3700 /uL (1500-7000); Neutrophils Percent Auto 60.2 % (50-75); Platelet Count 246 X10^3/uL (150-400); Red Cell Distribution Width 13.4 % (11.6-14.8); White Blood Cell Count 6.2 X10^3/uL (4.5-11.0)
[2020-12-03 13:57] LABS: Alanine Aminotransferase 18 IU/L (<35); Albumin 4.7 g/dL (3.5-5.0); Albumin Globulin Ratio 1.6 (1.0-2.8); Alkaline Phosphatase 50 U/L (38-126); Aspartate Aminotransferase 31 IU/L (14-36); BUN Creatinine Ratio 40.6 (6-22); Bilirubin Total 0.4 mg/dL (0.2-1.3); Blood Urea Nitrogen 28 mg/dL (7-17); Calcium 10.1 mg/dL (8.4-10.2); Carbon Dioxide 33 mmol/L (22-32); Chloride 102 mmol/L (98-107); Estimated Glomerular Filt Rate > 60.0 mL/min (>60); Globulin 2.9 g/dL (1.7-4.1); Glucose 95 mg/dL (80-110); HEMOLYSIS < 15 (0-50); Potassium 3.2 mmol/L (3.4-5.1); Sodium 142 mmol/L (137-145); Total Protein 7.6 g/dL (6.3-8.2)
== END ==
PROVIDERS: PCP Nurse Practitioner Family; Referring Provider Nurse Practitioner Family; Visit Provider Nurse Practitioner Family
DX: I10 Essential (primary) hypertension (principal); R93.89 Abnormal findings on diagnostic imaging of other specified body structures
CPT/HCPCS: 36415; 80053; 85025

== ENCOUNTER → 2020-12-09 09:01 | Outpatient (CLI) | payer MEDICARE, OTHER, SELFPAY ==
--- NOTE | 2020-12-09 | DI.NM.S_ITS ---
PROCEDURE: NM BONE SCAN WHOLE BODY RADIOPHARMACEUTICAL: 18.4 mCi Tc-99m MDP IV. INDICATIONS: ABNORMAL MRI SCAN TECHNIQUE: Delayed whole-body scintigrams were obtained approximately 3-4 hours after intravenous injection of radiotracer. Anterior and posterior views were acquired from vertex to feet. COMPARISON: [facility], MR, MR FEMUR LT WO/W CON, 12/01/2020, 9:39. FINDINGS: There is a small focus of moderately increased radiotracer uptake within a right inferior rib anteriorly. Degenerative uptake of radiotracer within the low mid/lower lumbar spine as well as within the bilateral knees and wrists. There is no evidence of increased radiotracer uptake within the proximal femurs. IMPRESSION: 1. Possible healing fracture within a right inferior rib. 2. No evidence of abnormal radiotracer uptake within the bilateral femora. Dictated by: Laura Sarmiento M.D. on 12/09/2020 at 13:39 Approved by: Laura Sarmiento M.D. on 12/09/2020 at 13:41
== END ==
PROVIDERS: PCP Nurse Practitioner Family; Referring Provider Nurse Practitioner Family; Visit Provider Nurse Practitioner Family
DX: R93.7 Abnormal findings on diagnostic imaging of other parts of musculoskeletal system (principal)
CPT/HCPCS: 78306; A9503

== ENCOUNTER → 2021-03-30 07:51 | Outpatient (CLI) | payer MEDICARE, OTHER, SELFPAY ==
--- NOTE | 2021-03-30 07:54 | DI.MG.S_ITS ---
BILATERAL DIGITAL SCREENING MAMMOGRAM 3D/2D WITH CAD: 03/30/2021 CLINICAL: Routine screening. Comparison is made to exams dated: 03/30/2021 mammogram, 08/22/2018 mammogram, 09/26/2016 mammogram, 08/20/2015 ultrasound, and 06/26/2011 mammogram - [facility]. The tissue of both breasts is heterogeneously dense. This may lower the sensitivity of mammography. Current study was also evaluated with a Computer Aided Detection (CAD) system. There are benign calcifications in both breasts. No significant masses, calcifications, or other findings are seen in either breast. There has been no significant interval change. IMPRESSION: BENIGN There is no mammographic evidence of malignancy. A 1 year screening mammogram is recommended. This exam was interpreted at Station ID: [id number]. NOTE: For mammograms, a report in lay terms will be sent to the patient. Approximately 15% of breast malignancies will not be visualized mammographically. In the management of a palpable breast mass, a negative mammogram must not discourage biopsy of a clinically suspicious lesion. Electronically Signed By: Butch quiroz/tyrone:04/01/2021 10:17:30 letter sent: Normal Exam ACR BI-RADS Category 2: Benign Finding(s) 3342F
== END ==
PROVIDERS: PCP Nurse Practitioner Family; Referring Provider Nurse Practitioner Family; Visit Provider Nurse Practitioner Family
DX: Z12.31 Encounter for screening mammogram for malignant neoplasm of breast (principal)
CPT/HCPCS: 77063; 77067

== ENCOUNTER → 2023-08-15 11:35 | Outpatient (CLI) | payer MEDICARE, OTHER, SELFPAY ==
--- NOTE | 2023-08-15 11:38 | DI.MG.S_ITS ---
BILATERAL DIGITAL SCREENING MAMMOGRAM 3D/2D WITH CAD: 08/15/2023 CLINICAL: Routine screening. Comparison is made to exams dated: 03/30/2021 mammogram, 08/22/2018 mammogram, and 09/26/2016 mammogram - [facility]. There are scattered areas of fibroglandular density in both breasts (category b / 25%-50% glandular tissue). Current study was also evaluated with a Computer Aided Detection (CAD) system. There are benign calcifications in both breasts. No significant masses, calcifications, or other findings are seen in either breast. There has been no significant interval change. IMPRESSION: BENIGN There is no mammographic evidence of malignancy. A 1 year screening mammogram is recommended. Based on the Tyrer Cuzick model (a risk assessment model) the patient's lifetime risk is 3.3% and her 10 year risk is 3.0%. According to the ACR, ACS, and NCCN guidelines, an annual breast MRI exam along with mammogram is recommended if the patient's lifetime risk is 20% or greater. This exam was interpreted at Station ID: [id number]. NOTE: For mammograms, a report in lay terms will be sent to the patient. Approximately 15% of breast malignancies will not be visualized mammographically. In the management of a palpable breast mass, a negative mammogram must not discourage biopsy of a clinically suspicious lesion. Electronically Signed By: Sarah evans/tyrone:08/15/2023 16:24:20 letter sent: Normal Exam ACR BI-RADS Category 2: Benign Finding(s) 3342F
--- NOTE | 2023-08-15 11:38 | DI.RAD.S_ITS ---
PROCEDURE: XR DEXA AXIAL SKELETON INDICATIONS: ROUTINE SCREENING COMPARISON: [facility], , XR DEXA AXIAL SKELETON, 02/25/2019, 14:44. [facility], CR, DEXA AXIAL SKELETON, 08/20/2015, 10:38. FINDINGS: Lumbar Spine: Bone mineral density 0.900 g/cm2, T score -1.3. Left Hip: Bone mineral density 0.808 g/cm2, T score -1.1. Left Femoral Neck: Bone mineral density 0.676 g/cm2, T score -1.6. Right Hip: Bone mineral density 0.776 g/cm2, T score -1.4. Right Femoral Neck: Bone mineral density 0.625 g/cm2, T score -2.0. Fracture Risk Calculation (when applicable): 10-year fracture risk of a major osteoporotic fracture 21% and of a hip fracture 12%. (T score greater or equal to -1.0 to: NORMAL) (T score from -1.1 to -2.4: OSTEOPENIA) (T score less than or equal to -2.5: OSTEOPOROSIS) IMPRESSION: Osteopenia Follow-up guidelines as follows: Osteoporosis: Consider a repeat DEXA and Vertebral Fracture Assessment (VFA) exam in 2 years or sooner if medically necessary, to reassess this patient's status. Osteopenia: Consider a repeat DEXA in 2-3 years to reassess this patient's status, or if there is a new clinical indication. Normal: Consider a repeat DEXA in 5 years or sooner, or if there is a new clinical indication. All treatment decisions require clinical judgment and consideration of individual patient factors, including patient preferences, comorbidities, previous drug use, risk factors not captured in the FRAX model (e.g., frailty, falls, vitamin D deficiency, increased bone turnover, interval significant decline in bone density ) and possible under- or over-estimation of fracture risk by FRAX. In addition, the NOF Guide recommends that FDA-approved medical therapies be considered in postmenopausal women and men age >= 50 years with a: * Hip or vertebral (clinical or morphometric) fracture * T-score of <=-2.5 at the spine or hip * Ten-year fracture probability by FRAX of >= 3% for hip fracture or >=20% for major osteoporotic fracture. People with diagnosed cases of osteoporosis or at high risk for fracture should have regular bone mineral density tests. For patients eligible for Medicare, routine testing is allowed once every 2 years. The testing frequency can be increased to one year for patients who have rapidly progressing disease, those who are receiving or discontinuing medical therapy to restore bone mass, or have additional risk factors. Dictated by: Butch Laboy M.D. on 08/15/2023 at 21:38 Approved by: Butch Laboy M.D. on 08/15/2023 at 21:41
== END ==
PROVIDERS: PCP Family Medicine; Referring Provider Family Medicine; Visit Provider Family Medicine
DX: Z12.31 Encounter for screening mammogram for malignant neoplasm of breast (principal); N95.9 Unspecified menopausal and perimenopausal disorder; R92.323 Mammographic fibroglandular density, bilateral breasts; M85.89 Other specified disorders of bone density and structure, multiple sites
CPT/HCPCS: 77063; 77067; 77080

== ENCOUNTER → 2024-01-01 08:35 | Outpatient (CLI) | payer MEDICARE, OTHER, SELFPAY ==
--- NOTE | 2024-01-01 | DI.CT.S_ITS ---
PROCEDURE: CT KIDNEY URETER BLADDER (KUB) INDICATIONS: RENAL STONES,RENAL ARTERY ANEURYSM TECHNIQUE: Axial sections were acquired from the lung bases to the pubic symphysis. Coronal and sagittal reformats were performed. For radiation dose reduction, the following was used: automated exposure control, adjustment of mA and/or kV according to patient size. COMPARISON: [facility], CT, CT ABD PELVIS W&WO CON IVP, 01/19/2016, 11:27. FINDINGS: Image quality: Diagnostic. Lower Chest: No significant findings. URINARY: Right Kidney: Nonobstructing right-sided kidney stones are seen, with the largest measuring 5 mm and 650 Hounsfield units. No right-sided hydronephrosis is seen. Right Ureter: No hydroureter. Left Kidney: Nonobstructing left-sided kidney stones are seen, with the largest solitary stone measuring 7 mm and measuring 500 Hounsfield units. Left Ureter: No hydroureter. Bladder: Normal wall thickness. No stones. ABDOMEN: Liver: No contour-deforming solid mass. Numerous water density liver cysts are seen. Gallbladder: No radiopaque gallstones or wall thickening. Biliary ducts: No biliary dilation. Pancreas: No ductal dilation. Spleen: Size is within normal limits. Adrenal Glands: No adrenal nodules. Stomach and Bowel: Normal colonic caliber, without significant wall thickening. Peritoneum: No abnormal intraperitoneal fluid. No free air. Ventral Wall: No hernia. Abdominal Nodes: No enlarged retroperitoneal or mesenteric lymph nodes. Vessels: Along the medial aspect of the right kidney, there is a rim calcified lesion seen, as on series 2, image 47, which is attributed to a calcified renal artery aneurysm. There is no significant change compared to 2016. Aorta and inferior vena cava are normal in size. PELVIS: Pelvic Organs: This patient is status post hysterectomy. No adnexal masses are seen. Pelvic Nodes: Unremarkable. Miscellaneous: No inguinal hernias are seen. Bones: Age-appropriate bony degenerative changes are seen. IMPRESSION: Nonobstructing bilateral renal stones are seen. When compared to 2016, the overall burden of stones appears slightly less. No obstructing stones are seen. No hydronephrosis or hydroureter. 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 on 01/02/2024 at 13:08 Approved by: Isai eHaly M.D. on 01/02/2024 at 13:13
== END ==
LOC: CT 08:36
PROVIDERS: PCP Family Medicine; Referring Provider Family Medicine; Visit Provider Family Medicine
DX: N20.0 Calculus of kidney (principal); I72.2 Aneurysm of renal artery; R91.8 Other nonspecific abnormal finding of lung field; K76.89 Other specified diseases of liver; Z90.710 Acquired absence of both cervix and uterus
CPT/HCPCS: 74176

== ENCOUNTER → 2025-02-26 08:57 | Outpatient (CLI) | payer MEDICARE, OTHER, SELFPAY ==
--- NOTE | 2025-02-26 09:01 | DI.MG.S_ITS ---
MM screening mammo BI: 02/26/2025. BI-RADS: 1 CLINICAL: 74-year old female for bilateral screening mammogram. Tyrer-Cuzick lifetime risk of 2.8%. No personal or first-degree family history of breast cancer. PRIOR EXAMS 08/15/2023, 03/30/2021, 08/22/2018, 09/26/2016. MAMMOGRAPHY TECHNIQUE: 2D and 3D (tomosynthesis) digital mammographic views obtained, with additional images as needed for full coverage. Current study was also evaluated with a Computer Aided Detection (CAD) system. DENSITY C. The breasts are heterogeneously dense, which may obscure small masses. MAMMOGRAPHY FINDINGS Bilateral: No suspicious mass, asymmetry, microcalcification, or other abnormality seen. IMPRESSION: * No evidence of malignancy. RECOMMENDATIONS Bilateral * Annual screening mammography. OVERALL ASSESSMENT CATEGORY BI-RADS-1: Negative. The [employer] recommends annual screening mammography beginning at age 40 for women with average risk of breast cancer. ELECTRONICALLY SIGNED: Christina Arcos M.D. on 03/03/2025 at 04:41:29 PM PT Interpreting Station ID: [id number]
== END ==
LOC: MAMMO 09:01
PROVIDERS: PCP Physician Assistant; Referring Provider Physician Assistant; Visit Provider Physician Assistant
DX: Z12.31 Encounter for screening mammogram for malignant neoplasm of breast (principal); R92.333 Mammographic heterogeneous density, bilateral breasts
CPT/HCPCS: 77063; 77067